=== PATIENT | female | born 1990 | race Caucasian/White ===

== ENCOUNTER 2023-11-10 03:52 | Emergency (ER) | payer OTHER ==
[2023-11-10 04:00] VITALS: BMI 22.3
[2023-11-10] MEDS ORDERED: SODIUM CHLORIDE 0.9% 500 ML INFUS.BAG IV ONE (04:16)
[2023-11-10] MEDS ORDERED: ONDANSETRON 4 MG/2 ML VIAL IVPUSH ONE (04:16)
[2023-11-10] MEDS ORDERED: ACETAMINOPHEN 1000 MG/100 ML BAG IVPB ONE (04:16)
[2023-11-10] MEDS ORDERED: ONDANSETRON 4 MG/2 ML VIAL ONE (04:24)
[2023-11-10] MEDS ORDERED: ACETAMINOPHEN INJECTION 100 ML IVPB ONE (04:24)
[2023-11-10 05:10] LABS: PH,URINE 6.5 (5.0-8.0); URINE APPEARANCE CLEAR; URINE BILIRUBIN NEGATIVE (NEGATIVE); URINE COLOR YELLOW; URINE GLUCOSE (UA) NEGATIVE (NEGATIVE); URINE KETONE NEGATIVE (NEGATIVE); URINE LEUK ESTERASE NEGATIVE (NEGATIVE); URINE NITRITE NEGATIVE (NEGATIVE); URINE PROTEIN NEGATIVE (NEGATIVE); URINE UROBILINOGEN 0.2 mg/dL (0.2-1.0)
[2023-11-10 05:38] LABS: BASO % 0.6 % (0-2.0); HEMATOCRIT 33.1 % (32.4-45.2); HEMOGLOBIN 11.9 GM/dL (10.7-15.3); LYMPH % 25.4 % (8-40); MCH 29.6 pg (25.7-33.7); MCHC 35.9 g/dl (32.0-36.0); MEAN CELL VOLUME 82.3 fl (80-96); MEAN PLT VOLUME 7.7 fl (7.5-11.1); MONO % 5.1 % (3.8-10.2); NEUT % 63.9 % (42.8-82.8); PLATELET COUNT 226 10^3/uL (134-434); RBC 4.02 M/mm3 (3.60-5.2)
[2023-11-10 05:42] LABS: POTASSIUM 4.4 mmol/L (3.5-5.1)
[2023-11-10 05:44] LABS: BLOOD UREA NITROGEN 5.6 mg/dL (7-18)
[2023-11-10 05:45] LABS: ALBUMIN 3.5 g/dl (3.4-5.0)
[2023-11-10 05:48] LABS: CREATININE 0.5 mg/dL (0.55-1.3)
[2023-11-10 05:49] LABS: TOT PROT 7.4 g/dl (6.4-8.2)
[2023-11-10 06:02] LABS: BILIRUBIN,TOTAL 0.3 mg/dL (0.2-1)
[2023-11-10 14:19] VITALS: BP 111/76; PULSE 82; RESP 18; TEMP 97.5
== END 2023-11-10 09:50 | disposition home or self-care (01) ==
LOC: JER 03:52
PROC: 3E033NZ Introduction of Analgesics, Hypnotics, Sedatives into Peripheral Vein, Percutaneous Approach (ICD-10-PCS; principal; 2023-11-10)
PROC: 3E033GC Introduction of Other Therapeutic Substance into Peripheral Vein, Percutaneous Approach (ICD-10-PCS; 2023-11-10)
DX: O26.892 Other specified pregnancy related conditions, second trimester (principal); R10.2 Pelvic and perineal pain; Z3A.15 15 weeks gestation of pregnancy; R10.32 Left lower quadrant pain; R11.0 Nausea
CPT/HCPCS: 36415; 76815-TC; 80053; 81003; 84702; 85025; 86850; 86900; 86901; 87086; 99284-25

== ENCOUNTER 2024-05-07 12:00 | Inpatient (IN) | payer OTHER ==
[2024-05-07 12:53] LABS: BASO % 0.4 % (0-2.0); EOS % 3.4 % (0-4.5); HEMATOCRIT 29.8 % (32.4-45.2); HEMOGLOBIN 10.2 GM/dL (10.7-15.3); LYMPH % 12.5 % (8-40); MCH 27.6 pg (25.7-33.7); MCHC 34.1 g/dl (32.0-36.0); MEAN PLT VOLUME 9.2 fl (7.5-11.1); MONO % 5.5 % (3.8-10.2); NEUT % 78.2 % (42.8-82.8); PLATELET COUNT 137 10^3/uL (134-434); RBC 3.68 M/mm3 (3.60-5.2); RDW 15.4 % (11.6-15.6); WHITE BLOOD COUNT 8.5 K/mm3 (4.0-10.0)
[2024-05-07 13:00] LABS: INR 0.95 (0.83-1.09); PROTHROMBIN TIME (PATIENT) 10.9 SEC (9.7-13.0)
[2024-05-07] MEDS: ELECTROLYTE-148 SOLN 1,000 ML IV SCH (13:00)
[2024-05-07 13:02] LABS: ACTIVATED PTT 28.9 SECONDS (25.2-36.5)
[2024-05-07 13:10] LABS: POTASSIUM 3.8 mmol/L (3.5-5.1)
[2024-05-07 13:12] LABS: BLOOD UREA NITROGEN 9.1 mg/dL (7-18)
[2024-05-07 13:16] LABS: CREATININE 0.7 mg/dL (0.55-1.3)
[2024-05-07] MEDS ORDERED: AMPICILLIN SODIUM 2 GM VIAL ONE (13:25)
[2024-05-07] MEDS: LABETALOL HCL 200 MG TABLET (FP) PO STA (13:25)
[2024-05-07] MEDS: AMPICILLIN - 2 GM in SODIUM CHLORIDE 100 ML IVPB ONE (13:30)
[2024-05-07 13:59] VITALS: BMI 28.8
[2024-05-07] MEDS ORDERED: AMPICILLIN SODIUM 1 GM VIAL ONE ×2 (17:27→21:20)
[2024-05-07] MEDS: AMPICILLIN - 1 GM in SODIUM CHLORIDE 100 ML IVPB SCH (17:31)
[2024-05-07] MEDS ORDERED: OXYTOCIN 30 UNITS in 0.9% NS 30 UNIT/500 ML INFUS.BAG IVPB ONE (21:20)
[2024-05-07] MEDS: OXYTOCIN 30 UNITS in 0.9% NS 30 UNIT/500 ML INFUS.BAG IVPB SCH (21:30)
[2024-05-08] MEDS ORDERED: AMPICILLIN SODIUM 1 GM VIAL ONE ×2 (01:28→05:23)
[2024-05-08] MEDS ORDERED: PROMETHAZINE HCL 25 MG/1 ML VIAL ONE (02:08)
[2024-05-08] MEDS ORDERED: BUTORPHANOL TARTRATE 2 MG/ML VIAL ONE (02:08)
[2024-05-08] MEDS: PROMETHAZINE HCL 25 MG/1 ML VIAL IVPB ONE (02:15)
[2024-05-08] MEDS: BUTORPHANOL TARTRATE 1 MG/ML VIAL IVPB PRN (02:15)
[2024-05-08] MEDS ORDERED: FENTANYL/BUPIVACAINE/NS/PF - PCEA - 50 ML DISP.SYRIN EP ONE (04:40)
[2024-05-08] MEDS: FENTANYL/BUPIVACAINE/NS/PF - PCEA - 50 ML DISP.SYRIN EP SCH (05:00)
[2024-05-08] MEDS ORDERED: NALOXONE HCL 0.4 MG/ML VIAL IVPUSH PRN (05:32)
[2024-05-08] MEDS ORDERED: OXYTOCIN 20 UNITS in 0.9% NS 20 UNIT/1,000 ML INFUS.BAG IV ONE (06:32)
[2024-05-08] MEDS ORDERED: LABETALOL HCL 200 MG TABLET (FP) ONE (06:34)
[2024-05-08] MEDS: LABETALOL HCL 200 MG TABLET (FP) PO SCH (06:35)
[2024-05-08] MEDS ORDERED: BISACODYL 10 MG SUPP.RECT RC PRN (06:40)
[2024-05-08] MEDS ORDERED: BENZOCAINE 28 GM HEMORRHOIDAL OINTMENT TP PRN (06:40)
[2024-05-08] MEDS ORDERED: METHYLERGONOVINE MALEATE 0.2 MG/1 ML AMP IM PRN (06:40)
[2024-05-08] MEDS ORDERED: WITCH HAZEL 50% (TUCKS) 40 PAD/JAR PAD TP PRN (06:40)
[2024-05-08] MEDS ORDERED: oxyCODONE HCL 5 MG TABLET ONE (07:48)
[2024-05-08] MEDS: OXYTOCIN 20 UNITS in 0.9% NS 20 UNIT/1,000 ML INFUS.BAG IV SCH (07:50)
[2024-05-08] MEDS: oxyCODONE HCL 5 MG TABLET PO PRN (07:55)
[2024-05-08 08:46] LABS: CORD BASE EXCESS -7.5 mmol/L (0-2); CORD HCO3 18.4 mmHg (20-29); CORD PCO2 39.1 mmHg (30-78); CORD pH 7.291 (7.14-7.44)
[2024-05-08] MEDS: FERROUS SO4 325 MG TABLET (FP) PO SCH (09:10)
[2024-05-08] MEDS ORDERED: IBUPROFEN 600 MG TABLET (FP) PO ONE (10:05)
[2024-05-08] MEDS: BENZOCAINE 20% 57 GM BOTTLE TP PRN (10:22)
[2024-05-08] MEDS: PRENATAL VITAMINS W/ FOLIC ACID TABLET (FP) PO SCH (10:44)
[2024-05-08 13:34] LABS: POC NITRAZINE NEG
[2024-05-09] MEDS: IBUPROFEN 600 MG TABLET (FP) PO PRN (01:01)
[2024-05-09 08:26] LABS: BASO % 0.3 % (0-2.0); EOS % 1.8 % (0-4.5); HEMATOCRIT 23.7 % (32.4-45.2); HEMOGLOBIN 8.2 GM/dL (10.7-15.3); MCH 28.5 pg (25.7-33.7); MCHC 34.5 g/dl (32.0-36.0); MEAN CELL VOLUME 82.8 fl (80-96); MEAN PLT VOLUME 8.9 fl (7.5-11.1); MONO % 5.1 % (3.8-10.2); NEUT % 77.8 % (42.8-82.8); PLATELET COUNT 111 10^3/uL (134-434); RBC 2.87 M/mm3 (3.60-5.2); RDW 15.8 % (11.6-15.6); WHITE BLOOD COUNT 10.2 K/mm3 (4.0-10.0)
[2024-05-09] MEDS: ACETAMINOPHEN 325 MG TABLET (FP) PO PRN (20:48)
[2024-05-09] MEDS ORDERED: SENNOSIDES/DOCUSATE COMBO (SENNA PLUS) TABLET (UD) PO PRN (22:00)
[2024-05-10 02:25] VITALS: RESP 18
[2024-05-10 11:28] VITALS: TEMP 98
[2024-05-10 13:32] VITALS: BP 134/86; PULSE 97
== END 2024-05-10 14:35 | disposition home or self-care (01) | DRG 560 ==
LOC: JLDR 12:00 → J3W 05-08 10:10
PROVIDERS: ADMIT Obstetrics & Gynecology; ATTEND Obstetrics & Gynecology
PROC: 10E0XZZ Delivery of Products of Conception, External Approach (ICD-10-PCS; principal; 2024-05-07)
DX: O13.4 Gestational [pregnancy-induced] hypertension without significant proteinuria, complicating childbirth (principal); Z3A.40 40 weeks gestation of pregnancy; Z37.0 Single live birth
CPT/HCPCS: 36415; 36600; 59409; 80048; 82803; 83986-QW; 85025; 85461; 85610; 85730; 86780; 86850; 86900; 86901; 96372; J2790

== ENCOUNTER 2025-01-26 02:52 | Emergency (ER) | payer OTHER ==
[2025-01-26 03:14] VITALS: TEMP 98.4; BMI 25.2
[2025-01-26] MEDS ORDERED: IBUPROFEN 600 MG TABLET (FP) PO ONE (03:45)
[2025-01-26] MEDS: IBUPROFEN 600 MG TABLET (FP) PO ONE (03:47)
[2025-01-26] MEDS ORDERED: LIDOCAINE 4% PATCH TP ONE (03:48)
[2025-01-26] MEDS: LIDOCAINE 5% TOPICAL PATCH TP ONE (03:50)
[2025-01-26 04:12] VITALS: BP 131/88; PULSE 84; RESP 16
[2025-01-26] MEDS ORDERED: LIDOCAINE PATCH REMOVAL MC SCH (22:00)
== END 2025-01-26 05:53 | disposition home or self-care (01) ==
LOC: JER 02:52
DX: R07.89 Other chest pain (principal); R05.9 Cough, unspecified; R09.81 Nasal congestion
CPT/HCPCS: 0241U-QW; 71046-TC-FY; 99284-25